=== PATIENT | female | born 1985 | race Caucasian/White ===

== ENCOUNTER 2019-02-19 20:53 | Emergency (ER) | payer OTHER ==
[~2019-02-19] VITALS: Ht 170.2 cm; Wt 61.2 kg
[~2019-02-19 20:53] MED LIST: ALBUTEROL INHAL17 GM IH; AMOXIL 875 MG875 M1 PO; IBUPROFEN 800800 M1 PO; NOHOMEMEDICATIONS; PERCOCET 5-3251 EACH PO; VICODIN PO
[2019-02-19 20:58] VITALS: BP 125/78
[2019-02-19] MEDS ORDERED: PREDNISONE 10 M10 M1 PO (21:26)
[2019-02-19] MEDS ORDERED: IBU800 MG PO (21:26)
[2019-02-19] MEDS ORDERED: AMOXICILLIN875 MG PO (21:26)
== END 2019-02-19 21:35 | disposition home or self-care (01) ==
LOC: M.ERS 20:53
DX: J03.90 Acute tonsillitis, unspecified (principal)